=== PATIENT | male | born 1940 | race Caucasian/White ===

== ENCOUNTER 2023-12-21 06:04 | Outpatient (REF) | payer SELFPAY ==
[2023-12-21 06:25] LABS: INTERNATIONAL NORM RATIO 1.5 (0.9-1.1); Prothrombin Time 17.9 SEC (10.9-12.4)
== END 2023-12-21 06:05 | disposition home or self-care (01) ==
LOC: HO.MMNH1L 06:04
PROVIDERS: Visit Provider Hospitalist
DX: N18.32 Chronic kidney disease, stage 3b (principal); Z86.718 Personal history of other venous thrombosis and embolism
CPT/HCPCS: 36415; 85610

== ENCOUNTER 2024-01-09 06:40 | Outpatient (REF) | payer MEDICARE, SELFPAY | END 2024-01-09 06:41 | disposition home or self-care (01) | LOC: HO.MMNH1L 06:40 | PROVIDERS: Visit Provider Hospitalist | DX: I10 Essential (primary) hypertension (principal) | CPT/HCPCS: 36415; 80048; 85025; 85610 ==